=== PATIENT | female | born 1990 | race Two or more races ===

== ENCOUNTER 2017-07-18 01:05 | Inpatient (IN) | payer MEDICAID ==
[2017-07-18 01:45] LABS: APPEARANCE,URINE SLIGHTLY-CLOUDY; BILIRUBIN,URINE NEGATIVE (NEGATIVE); GLUCOSE, URINE NEGATIVE (NEGATIVE); KETONES,URINE NEGATIVE (NEGATIVE); LEUKOCYTE ESTERASE,URINE MODERATE (NEGATIVE); NITRITE,URINE NEGATIVE (NEGATIVE); PROTEIN,URINE NEGATIVE (NEGATIVE); URINE SPECIFIC GRAVITY 1.011; UROBILINOGEN,URINE NEGATIVE mg/dL (<2.0)
[2017-07-18 01:53] LABS: AMNISURE (ROM) POSITIVE (NEGATIVE)
[2017-07-18 02:00] LABS: URINE BARBITURATES SCREEN NEGATIVE; URINE METHADONE SCREEN NEGATIVE; URINE OPIATES LOW NEGATIVE; URINE PHENCYCLIDINE SCREEN NEGATIVE
[2017-07-18] MEDS ORDERED: PENICILLIN G-K 5 MILLION UNIT VIAL ONE ×6 (02:00→22:21)
[2017-07-18] MEDS ORDERED: PENICILLIN G POTASSIUM 5,000,000 UNIT in DEXTROSE 5%-WATER 100 ML IV ONE (02:01)
[2017-07-18] MEDS ORDERED: RINGERS SOLUTION,LACTATED 1,000 ML IV ONE (02:01)
[2017-07-18] MEDS ORDERED: PENICILLIN G-K 5 MILLION UNIT VIAL IV PRN (02:08)
[2017-07-18 02:55] LABS: ABSOLUTE BASOPHILS # (AUTO) 0.1 10^3/uL (0.0-0.2); ABSOLUTE EOSINOPHILS # (AUTO) 0.1 10^3/uL (0.0-0.6); ABSOLUTE LYMPHOCYTES (AUTO) 1.9 10^3/uL (0.5-4.7); ABSOLUTE MONOCYTES (AUTO) 0.9 10^3/uL (0.1-1.4); BASOPHILS % (AUTO) 0.5 % (0-2); EOSINOPHILS % (AUTO) 0.7 % (0-6); HEMATOCRIT 29.6 % (36.0-47.0); HEMOGLOBIN 10.2 g/dL (12.0-15.5); LYMPHOCYTES % (AUTO) 17.5 % (13-45); MEAN CORPUSCULAR HEMOGLOBIN 28.3 pg (27.0-33.4); MEAN CORPUSCULAR HGB CONC 34.4 g/dL (32.0-36.0); MEAN CORPUSCULAR VOLUME 82 fl (80-97); MONOCYTES % (AUTO) 7.8 % (3-13); RED CELL DISTRIBUTION WIDTH 13.6 % (11.5-14.0); SEGMENTED NEUTROPHILS % (AUTO) 73.5 % (42-78); WHITE BLOOD COUNT 10.9 10^3/uL (4.0-10.5)
[2017-07-18] MEDS ORDERED: OXYTOCIN/NORMAL SALINE 20 UNIT/1,000 ML RTUINJ ONE ×2 (05:01→12:06)
[2017-07-18] MEDS ORDERED: OXYTOCIN/NORMAL SALINE 20 UNIT/1,000 ML RTUINJ IV PRN (05:03)
[2017-07-18] MEDS: PENICILLIN G POTASSIUM 2,500,000 UNIT in DEXTROSE 5%-WATER 50 ML IV SCH ×4 (10:00→22:28)
--- NOTE | 2017-07-18 12:01 | L&D Progress Notes ---
PROGRESS NOTES Datetime Report Generated by CPN: 07/18/2017 12:01 PROGRESS NOTE Impression: Premature Rupture of Membranes Procedures: Sterile Vag Exam Plan: Continue Present Management; Induction Informed Consent Obtained: Vaginal Delivery; Induction of Labor; Risks, Benefits and Alternatives Discussed Vital Signs : Reviewed; Within Normal Limits Comment: S: pt. with increased pain with contractions desires epidural for pain control O: pit @ 20mu/min, cervix as stated, vss, afebrile A: IUP @ 38w PROM x 12hrs-stable, progressing with pit augment/induction P: epidural prn, reassess as clinically indicated/earlier prn. VAGINAL EXAM Dilatation: 4 Dilatation: 1 Effacement: 80 Effacement: 0 Station: -2 Station: -2 Contractions: q2-3min MEMBRANES Pooling: Positive Membranes: Ruptured Membranes: Intact Amniotic Fluid Color: Clear FETUS A Monitoring: External US Variability: Moderate 6-25bpm Accelerations: 15X15 Decelerations: None FHR Category: Category I : 37.0 Presentation: Vertex SIGNATURE SIGNATURE: [id number] Assignment: Vanna Spann MD Signature: with User ID: [email or web address] : with User ID: [email or web address]
[2017-07-18] MEDS ORDERED: FENTANYL/BUPIVACAINE/NS/PF 200 MCG/100 ML RTUINJ EPI ONE ×2 (12:04→22:09)
[2017-07-18] MEDS ORDERED: EPHEDRINE SULFATE INJ 50 MG/1 ML AMPULE ONE (12:04)
[2017-07-18] MEDS ORDERED: BUPIVACAINE HCL 0.25 % INJ/PF (2.5 MG/1 ML) 30 ML VIAL ONE (12:04)
[2017-07-18] MEDS ORDERED: LIDOCAINE 1% INJ-PF (10 MG/ML) 30 ML SDV ONE (12:05)
[2017-07-18] MEDS ORDERED: MISOPROSTOL 0.2 MG TABLET ONE (12:05)
--- NOTE | 2017-07-18 17:50 | L&D Progress Notes ---
PROGRESS NOTES Datetime Report Generated by CPN: 07/18/2017 17:50 PROGRESS NOTE Impression: Premature Rupture of Membranes Impression: Premature Rupture of Membranes Procedures: Intrauterine Pressure Catheter Procedures: Intrauterine Pressure Catheter; Scalp Electrode Plan: Continue Present Management Plan: Continue Present Management Informed Consent Obtained: Vaginal Delivery; Induction of Labor; Risks, Benefits and Alternatives Discussed Vital Signs : Reviewed; Within Normal Limits Comment: S: pt. reports complete pain relief with epidural placement. O:pit @ 20mu/min, unable to trace contractions with external monitors (RN also requesting FSE), cervix as stated, vss, afebrile A: IUP @ 38w PROM pit augment with minimal change P: IUPC and FSE placed without difficulty mix of clear bloody fluid noted. IUPC not working properly and replaced. Pt. tolerated well. Report given to Dr. Spann. FETUS C SIGNATURE: [id number] Assignment: Vanna Spann MD Signature: with User ID: [email or web address] : with User ID: [email or web address]
[2017-07-18] MEDS ORDERED: ONDANSETRON HCL INJ/PF 4 MG/2 ML SDV ONE (22:03)
[2017-07-18] MEDS ORDERED: ONDANSETRON HCL INJ/PF 4 MG/2 ML SDV IV ONE (23:00)
[2017-07-18] MEDS ORDERED: ACETAMINOPHEN 325 MG TABLET PO ONE (23:59)
[2017-07-19] MEDS ORDERED: ACETAMINOPHEN 325 MG TABLET ONE
[2017-07-19] MEDS ORDERED: PENICILLIN G-K 5 MILLION UNIT VIAL ONE (02:19)
[2017-07-19] MEDS ORDERED: CEFAZOLIN 2 GM/D5W RTU 2 GM/50 ML RTUPB IV ONE (05:51)
[2017-07-19] MEDS ORDERED: CITRIC ACID/SODIUM CITRATE ORAL SOLN 15 ML UDCUP ONE (05:51)
[2017-07-19] MEDS ORDERED: METHYLERGONOVINE MALEATE INJ/PF 0.2 MG/1 ML AMPULE ONE (05:55)
[2017-07-19] MEDS ORDERED: LIDOCAINE 2% INJ-PF (20 MG/ML) 10 ML AMPUL ONE (05:55)
[2017-07-19] MEDS ORDERED: PROPOFOL INJ 200 MG/20 ML VIAL IV ONE (06:12)
[2017-07-19] MEDS ORDERED: OXYTOCIN 10 UNIT/ML VIAL ONE (06:12)
[2017-07-19] MEDS ORDERED: EPHEDRINE SULFATE INJ 50 MG/1 ML AMPULE ONE (06:13)
[2017-07-19] MEDS ORDERED: MIDAZOLAM 2 MG/2 ML INJ ONE (06:13)
[2017-07-19] MEDS ORDERED: FENTANYL CITRATE INJ/PF 100 MCG/2 ML AMPUL ONE (06:13)
[2017-07-19] MEDS ORDERED: CEFAZOLIN SODIUM 2 GM in DEXTROSE 5%-WATER 50 ML IV PRN (06:14)
[2017-07-19] MEDS ORDERED: DIPHENHYDRAMINE HCL 50 MG/ML VIAL IV PRN (06:33)
[2017-07-19] MEDS ORDERED: PROMETHAZINE HCL INJ 25 MG/1 ML VIAL IV PRN ×2 (06:33→07:09)
[2017-07-19] MEDS ORDERED: MORPHINE SULFATE 10 MG/ML INJ IV PRN ×2 (06:33→07:09)
[2017-07-19] MEDS ORDERED: FENTANYL CITRATE INJ/PF 100 MCG/2 ML AMPUL IV PRN ×3 (06:33)
[2017-07-19] MEDS ORDERED: MEPERIDINE HCL/PF INJ 25 MG/1 ML DISP.SYRIN IV PRN (06:33)
[2017-07-19] MEDS ORDERED: OXYTOCIN/NORMAL SALINE 20 UNIT/1,000 ML RTUINJ IV PRN (07:09)
[2017-07-19] MEDS ORDERED: SIMETHICONE 80 MG TAB.CHEW PO PRN (07:09)
[2017-07-19] MEDS ORDERED: ACETAMINOPHEN 100 ML IV PRN (07:09)
[2017-07-19] MEDS ORDERED: DIPH/PERTUSS(ACELL)/TETANUS VAC/PF 0.5 ML SYR (>=10YO) IM PRN (07:09)
[2017-07-19] MEDS ORDERED: OXYCODONE-ACETAMINOPHEN 5-325 MG TABLET PO PRN ×2 (07:09)
[2017-07-19] MEDS ORDERED: MEASLES,MUMPS&RUBELLA VACC/PF 0.5 ML VIAL SUBCUT PRN (07:09)
[2017-07-19] MEDS ORDERED: ACETAMINOPHEN 325 MG TABLET PO PRN (07:09)
[2017-07-19] MEDS ORDERED: MORPHINE SULFATE 10 MG/ML INJ ONE (07:15)
[2017-07-19] MEDS ORDERED: ACETAMINOPHEN 100 ML IV ONE (07:43)
--- NOTE | 2017-07-19 08:23 | OPERATIVE REPORT E ---
Operative Report NAME: IAN BYRNE : 1990 AGE: 26Y DATE OF SURGERY: ROOM: LR200 PREOPERATIVE DIAGNOSIS: IUP AT 38 WEEKS AND 1 DAY, PREMATURE RUPTURE OF MEMBRANES, CEPHALOPELVIC DISPROPORTION, FAILURE TO DESCEND. POSTOPERATIVE DIAGNOSIS: IUP AT 38 WEEKS AND 1 DAY, PREMATURE RUPTURE OF MEMBRANES, CEPHALOPELVIC DISPROPORTION, FAILURE TO DESCEND. OPERATION: A low-transverse hysterotomy, section. SURGEON: GREGORIO RODGERS M.D. ANESTHESIA: Dr. Riley with an epidural. ESTIMATED BLOOD LOSS: 600 mL. FINDINGS: A male infant, cephalic presentation, with Apgars of 8 and 9, weight 7 pounds 11 ounces. COMPLICATIONS: None. SPECIMENS REMOVED: None. INDICATIONS: This is a patient who came in with premature rupture of membranes at approximately 1 a.m. on July 18, had very slow progression but did get to complete dilation, pushed for 3+ hours with no progression of the presenting part despite 3 hours of adequate pushing, maternal fatigue, and decision to proceed with primary section. PROCEDURE IN DETAIL: Patient was taken to the operating room, prepared and draped in normal sterile fashion in supine position with a leftward tilt. Transverse skin incision was made with a scalpel and carried through to the underlying layer of fascia with the same scalpel. The fascia was excised in the midline and extended laterally with Mayos. The fascia was then dissected from the rectus muscle sharply with the Bovie, and the peritoneal cavity was entered bluntly with surgeon finger fracture with good visualization of the bladder and the uterus. A bladder blade was inserted. The hysterotomy was nicked with a scalpel and extended laterally with surgeon finger fracture. The was then delivered atraumatically. The nose and mouth were suctioned with a suction bulb, the cord was clamped and cut, and the was handed off to waiting spring tacker. The cord blood was collected. The placenta was removed manually. The uterus was exteriorized and cleared of clots and debris. The hysterotomy was closed with 0 Monocryl in a running locked fashion. A second layer of the same was used to imbricate to ensure hemostasis. The uterus was returned to the abdomen, and peritoneal cavity was cleared of clots and debris. The rectus muscle and peritoneum were reapproximated with a mattress suture of 2-0 chromic. The fascia was closed with 0 Vicryl. The subcutaneous layer was closed with plain catgut, and the skin was closed with 4-0 Vicryl. Patient tolerated procedure well. Sponge, lap, and needle counts were correct x2. Patient was taken to recovery in stable condition. DICTATING PHYSICIAN: GREGORIO RODGERS M.D. [id number] PHY#: [id number] ID: [id number] JOB#: [id number] ACCT: [id number] cc:GREGORIO RODGERS M.D. >
--- NOTE | 2017-07-19 09:22 | Admission Physical ---
Datetime Report Generated by CPN: 07/19/2017 09:21 CURRENT ADMISSION Chief Complaint: Suspected Ruptured Membranes Indication for Induction: PROM Indication for Induction: Term, Intrauterine ; Ruptured Membranes Admit Plan: Admit to Unit; Initiate Labor Induction Protocol ALLERGIES Medication Allergies: Yes Medication Allergies: ethinyl estradiol (07/18/2017); drospirenone (07/18/2017) Medication Allergies: Rupali control Latex: No Latex Allergies Food Allergies: N/A Environmental Allergies: N/A OBSTETRICAL HISTORY EDC: 08/01/2017 00:00 (Annotations: Data stored by N on behalf of user) EDC: 08/04/2017 00:00 : 1 Para: 0 Term: 0 : 0 SAB: 0 IAB: 0 Ectopic: 0 Livin Cesareans: 0 VBACs: 0 Multiple Births: 0 Gestational Diabetes: No Rh Sensitization: No Incompetent Cervix: No LYRIC: No Infertility: No ART Treatment: No Uterine Anomaly: No IUGR: No Hx Previous C/S: No Macrosomia: No Hx Loss/Stillborn: No PIH: No Hx : No Placenta Previa/Abruption: No Depression/PP Depression: No PTL/PROM: No Post Hemorrhage: No Current Procedures: Ultrasound; NST Obstetrical History Comments: G1- current SEE RECORDS Alcohol: No Marijuana : No Cocaine: No Other Illicit Drugs: No Cigarettes: Never Smoker. 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 Surgery: No Heart Disease: No Hosp/Surgery: No Autoimmune Disorder: No Anesthetic Complications: No Kidney Disease: No Abnormal Pap Smear: No Neuro/Epilepsy: No Psychiatric Disorders: No Other Medical Diseases: No Hepatitis/Liver Disease: No Significant Family History: No Varicosities/Phlebitis: No Trauma/Violence : No Thyroid Dysfunction: No Medical History Comments: wisdom teeth removal 2015 INFECTIOUS HISTORY Gonorrhea: No Genital Herpes: No Chlamydia: No Tuberculosis: No Syphilis: No Hepatitis: No HIV/AIDS Exposure: No Rash or Viral Illness: No HPV: No PHYSICAL EXAM General: Normal HEENT: Normal Neurologic: Normal Thyroid: Normal Heart: Normal Lungs: Normal Breast: Deferred Back: Normal Abdomen: Normal Genitourinary Exam: Normal Extremities: Normal DTRs: Normal Pelvic Type: Adequate Vital Signs: Reviewed VAGINAL EXAM Dilatation: 4 Dilatation: 1 Effacement: 80 Effacement: 0 Station: -2 Station: -2 Contraction Comments: q2-3min MEMBRANES Pooling: Positive Membranes: Ruptured Membranes: Intact Amniotic Fluid Color: Clear FETUS A EGA: 38.0 Monitoring: External US FHR- Baseline: 120 Decelerations: None Presentation: Vertex PLANS FOR LABOR AND DELIVERY Labor and Delivery: None Pain Management: Epidural Feeding Preference: Breast Benefit of Breast Feed Discussed: Yes Circumcision: No INFORMED CONSENT Informed Consent Obtained: Vaginal Delivery; Induction of Labor; Risks, Benefits and Alternatives Discussed Informed Consent Obtained: Vaginal Delivery; Induction of Labor; Risks, Benefits and Alternatives Discussed Informed Consent Obtained: Vaginal Delivery; Induction of Labor; Risks, Benefits and Alternatives Discussed Signature: with User ID: [email or web address]
--- NOTE | 2017-07-19 09:45 | Warning Signs in Babies ---
VOD Warning Signs Datetime Report Generated by [facility]: 07/19/2017 09:45 VOD - Warning Signs in Babies: Needs to be viewed. (07/19/2017 09:30:Carmen Edmondson RN)
[2017-07-19] MEDS: PRENATAL VITAMIN W DHA CAPSULE PO SCH (10:09)
[2017-07-19] MEDS: DOCUSATE SODIUM 100 MG CAPSULE PO SCH ×2 (10:09→18:02)
[2017-07-19] MEDS: KETOROLAC TROMETHAMINE INJ/PF 30 MG/1 ML SDV IV SCH ×2 (14:08→21:53)
[2017-07-20] MEDS: KETOROLAC TROMETHAMINE INJ/PF 30 MG/1 ML SDV IV SCH (05:38)
[2017-07-20 06:00] LABS: HEMOGLOBIN 8.8 g/dL (12.0-15.5); HGB HCT DIFFERENCE 0.4; MEAN CORPUSCULAR HEMOGLOBIN 28.2 pg (27.0-33.4); MEAN CORPUSCULAR HGB CONC 33.9 g/dL (32.0-36.0); MEAN CORPUSCULAR VOLUME 83 fl (80-97); RED BLOOD COUNT 3.12 10^6/uL (3.72-5.28); WHITE BLOOD COUNT 18.1 10^3/uL (4.0-10.5)
[2017-07-20] MEDS: DOCUSATE SODIUM 100 MG CAPSULE PO SCH ×2 (10:49→18:07)
[2017-07-20] MEDS: PRENATAL VITAMIN W DHA CAPSULE PO SCH (10:50)
--- NOTE | 2017-07-20 11:08 | PDOC PROGRESS REPORT ---
Subjective-OB Subjective: Post Delivery Day: 1 28 year old. Denies any needs at this time, passing gas, tolerating diet, lochia is stable, voiding without difficulty, pain well controlled. Physical Exam (OB) Vital Signs: Temp Pulse Resp BP Pulse Ox 98.4 F 99 16 116/65 97 07/20/17 07:22 07/20/17 07:22 07/20/17 07:22 07/20/17 07:22 07/20/17 07:22 Intake & Output 07/19/17 07/20/17 07/21/17 06:59 06:59 06:59 Intake Total 2290 Output Total 2600 Balance -310 - PIH/Pre-Eclampsia Clonus: Negative Headache: Absent Epigastric Pain: No Visual Changes: No - Dressing Removed: No Incision: Dressing, Well Approximated - Lochia Lochia Amount: Scant < 10 ml Lochia Color: Rubra/Red - Abdomen Description: Soft Hernia Present: No Fundal Description: Firm, Midline Fundal Height: u/u - u/2 Objective-Diagnostic Laboratory: 07/20/17 05:44 07/20/17 05:44 WBC 18.1 H RBC 3.12 L Hgb 8.8 L Hct 26.0 L MCV 83 MCH 28.2 MCHC 33.9 RDW 14.0 Plt Count 181 Assessment and Plan(PN) - Assessment and Plan (1) Status post primary low transverse section Is this a current diagnosis for this admission?: Yes Plan: routine postop care (2) Acute blood loss anemia Is this a current diagnosis for this admission?: Yes Plan: ferrous sulfate increase dietary iron - Time Spent with Patient Time with patient: Less than 15 minutes Critical Time spent with patient: Less than 15 minutes Medications reviewed and adjusted accordingly: Yes - Disposition Anticipated Discharge: Home Within: within 24 hours
[2017-07-20] MEDS: IBUPROFEN 800 MG TABLET PO SCH (18:05)
[2017-07-21] MEDS: IBUPROFEN 800 MG TABLET PO SCH ×2 (00:16→05:51)
--- NOTE | 2017-07-21 08:47 | PDOC DISCHARGE SUMMARY ---
Final Diagnosis Discharge Date: 07/21/17 - Final Diagnosis (1) Status post primary low transverse section Is this a current diagnosis for this admission?: Yes (2) Acute blood loss anemia Is this a current diagnosis for this admission?: Yes Discharge Data - Discharge Medication Home Medications: Prenat 115/Iron Fum/Folic/Dss [ 19 Tablet] 1 tab PO DAILY 07/18/17 Docusate Sodium [Colace 100 mg Capsule] 100 mg PO BID #60 capsule 07/21/17 Ferrous Sulfate 325 mg PO BID #60 tablet. 07/21/17 Ibuprofen [Motrin 800 mg Tablet] 800 mg PO Q6 #60 tablet 07/21/17 Oxycodone HCl/Acetaminophen [Percocet 5-325 mg Tablet] 2 tab PO Q4HP PRN #30 tablet 07/21/17 Gestational Age: 38.1 Reason(s) for Admission: PROM, Group B Strep Positive Procedures: NST Intrapartum Procedure(s): : Low Cervical, Transverse - [place] Data Baby 1 Male at 1 minute: 8 at 5 minutes: 9 Weight: 3.487 kg Home with Mother: Yes Complications: No - Diagnosis Test Laboratory: Temp Pulse Resp BP Pulse Ox 97.8 F 91 18 122/73 99 07/21/17 07:42 07/21/17 07:42 07/21/17 07:42 07/21/17 07:42 07/21/17 07:42 07/18/17 07/18/17 07/20/17 01:19 02:12 05:44 RBC 3.60 L 3.12 L Hgb 10.2 L 8.8 L Hct 29.6 L 26.0 L Urine Opiates Screen NEGATIVE - Discharge information/Instructions Discharge Activity: Activity As Tolerated, No Driving, Pelvic Rest, No tub bath Discharge Diet: Regular Disposition: HOME, SELF-CARE Follow up with: [facility] in: 1, Weeks
[2017-07-21] MEDS: PRENATAL VITAMIN W DHA CAPSULE PO SCH (09:25)
[2017-07-21] MEDS: DOCUSATE SODIUM 100 MG CAPSULE PO SCH (09:25)
[2017-07-21 11:51] VITALS: BP 118/58
== END 2017-07-21 12:55 | disposition home or self-care (01) | DRG 766 ==
LOC: LC 01:05 → LR 02:03 → 2N 07-19 09:19
PROVIDERS: ADMIT Obstetrics & Gynecology; ATTEND Obstetrics & Gynecology
PROC: 10D00Z1 Extraction of Products of Conception, Low, Open Approach (ICD-10-PCS; principal; 2017-07-18)
DX: O99.824 Streptococcus B carrier state complicating childbirth (principal); O42.02 Full-term premature rupture of membranes, onset of labor within 24 hours of rupture; O75.81 Maternal exhaustion complicating labor and delivery; O33.9 Maternal care for disproportion, unspecified; O32.4XX0 Maternal care for high head at term, not applicable or unspecified; Z3A.38 38 weeks gestation of pregnancy; Z37.0 Single live birth
CPT/HCPCS: 1961; 36415; 80307; 81005; 84112; 85025; 85027; 86592; 86850; 86900; 86901; 94760; 94799; J0131; J0690; J1885; J2210; J2250; J2270; J2405; J2540; J2590; J2704; J3010; J3490